=== PATIENT | female | born 1970 | race Caucasian/White ===

== ENCOUNTER 2016-09-15 18:01 | Emergency (ER) | payer BC ==
[~2016-09-15] VITALS: Ht 172.7 cm; Wt 77.1 kg
--- NOTE | 2016-09-15 18:01 | NUR ---
TRIAGED AND SEEN BY TYLER AHUJA IN TRIAGE ROOM, PT TO WAITING ROOM UNTIL BED AVAILABLE
[2016-09-15 18:02] VITALS: BP 119/73; PULSE 60; RESP 18; TEMP 97.5; O2SAT 100
[2016-09-15] MEDS ORDERED: ONDANSETRON 4 MG ODT TAB PO ONE (18:15)
[2016-09-15] MEDS ORDERED: ACETAMINOPHEN 500 MG TABLET PO ONE (18:30)
[2016-09-15 18:36] LABS: BILIRUBIN,URINE NEGATIVE (NEGATIVE); BLOOD, URINE 2+ (NEGATIVE); CLARITY/URINE CLOUDY (CLEAR); COLOR,URINE YELLOW (YELLOW); GLUCOSE,URINE NEGATIVE (NEGATIVE); KETONES,URINE NEGATIVE (NEGATIVE); LEUKOCYTE ESTERASE ,URINE 2+ (NEGATIVE); NITRITE, URINE NEGATIVE (NEGATIVE); PH,URINE 8.5 (5.0-8.0); PROTEIN URINE TRACE (NEGATIVE); UROBILINOGEN,URINE 0.2 (0.2-1.0)
--- NOTE | 2016-09-15 18:52 | NUR ---
Patient to [facility] for evaluation. Side rails up. Report given to HASEEB Kumar.
--- NOTE | 2016-09-15 18:55 | NUR ---
[employer] Samara Carson at bedside examining patient
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
[2016-09-15 19:10] LABS: BACTERIA,URINE MODERATE /HPF (None Seen); MUCUS,URINE 2+ /LPF (None Seen); URINE AMORPHOUS PHOSPHATES 4+ /HPF (None Seen); WBC,URINE 20-50 /HPF (0-3)
--- NOTE | 2016-09-15 19:59 | NUR ---
Patient given written and verbal discharge instructions and verbalizes understanding. ER MD discussed with patient the results and treatment provided. Given copies of tests performed in ER. Patient in stable condition. ID arm band removed. Rx of Macrobid, Zofran and Tylenol given. Patient educated on pain management and to follow up with PMD. Pain Scale 0/10 . Opportunity for questions provided and answered.
[2016-09-15 20:00] VITALS: BP 119/73; PULSE 60; RESP 18; TEMP 97.5; O2SAT 100
--- NOTE | 2016-09-18 13:30 | NUR ---
RECEIVED FINAL URINE CULTURE RESULT, PT WAS GIVEN ANTIBIOTICS THEY ARE SENSITIVE TO. NO FURTHER ACTIONS NEEDED.
== END 2016-09-15 20:00 | disposition home or self-care (01) ==
LOC: SED 18:01
DX: S00.83XA Contusion of other part of head, initial encounter (principal); N39.0 Urinary tract infection, site not specified; Z88.0 Allergy status to penicillin; W22.8XXA Striking against or struck by other objects, initial encounter; Y93.89 Activity, other specified; Y99.8 Other external cause status; Y92.89 Other specified places as the place of occurrence of the external cause
CPT/HCPCS: 70450; 81000; 81025; 87086; 99285; Q0162; 87186-TC